=== PATIENT | male | born 1975 | race Caucasian/White ===

== ENCOUNTER 2018-03-20 19:55 | Emergency (ER) | payer OTHER ==
--- NOTE | 2018-03-20 20:24 | ER Document Report ---
ED General - General Chief Complaint: Urinary Problem Stated Complaint: DIFFICULTY URINATING Time Seen by Provider: 03/20/18 20:24 Notes: Patient is a 42-year-old male that presents to the emergency department for chief complaint of urinary retention. Patient states his been having difficulty having urinary stream throughout the entire day today, he is been having small dribbling throughout. He has had this in the past, more remotely 20 years ago, he had to have a TURP procedure, because he had urinary retention after an injury. He states about a week and a half ago, he was having similar symptoms and was started on antibiotic and it seemed to help, but then his symptoms returned today so this brought him to the emergency department. He describes the pain is having is a pressure in the suprapubic region, describes as a constant dull ache, as a 4 out of 10 at this time, with sensation to urinate. He has had burning in the urination as well. He did start taking Azo today, which has changed the urine color to orange. Past Medical History: Denies other chronic medical conditions Past Surgical History: TURP procedure Social History: Denies tobacco, alcohol or drug use. Family History: Reviewed and noncontributory for presenting illness Allergies: Reviewed, see documented allergy list. REVIEW OF SYSTEMS: Unless otherwise stated in this report the patient's positive and negative responses for review of systems for constitutional, eyes, ENT, cardiovascular, respiratory, gastrointestinal, neurological, genitourinary, musculoskeletal, and integumentary systems and related systems to the presenting problem are either as stated in the HPI or were not pertinent or were negative for the symptoms and/or complaints related to the presenting medical problem. PHYSICAL EXAMINATION: Vital signs reviewed, nursing noted reviewed. GENERAL: Well-appearing, well-nourished and appears uncomfortable HEAD: Atraumatic, normocephalic. EYES: Eyes appear normal, extraocular movements intact, sclera anicteric, conjunctiva are normal. ENT: nares patent, oropharynx clear without exudates. Moist mucous membranes. NECK: Normal range of motion, supple without lymphadenopathy LUNGS: Breath sounds clear to auscultation bilaterally and equal. No wheezes rales or rhonchi. HEART: Regular rate and rhythm without murmurs ABDOMEN: Soft, suprapubic tenderness to palpation, normoactive bowel sounds. No rebound, guarding, or rigidity. No masses appreciated. EXTREMITIES: Nontender, good range of motion, no pitting or edema. NEUROLOGICAL: No focal neurological deficits. Moves all extremities spontaneously Motor and sensory grossly intact on exam. PSYCH: Normal mood, normal affect. SKIN: Warm, Dry, normal turgor, no rashes or lesions noted on exposed skin TRAVEL OUTSIDE OF THE [place] IN LAST 30 DAYS: No - Related Data Allergies/Adverse Reactions: pseudoephedrine HCl [From Sudafed] Allergy (Verified 03/20/18 19:59) Past Medical History - Social History Smoking Status: Never Smoker Family History: Reviewed & Not Pertinent Course - Re-evaluation Re-evalutation: Patient seen and examined vital signs reviewed. Was planning on placing a urinary catheter, due to the patient's urinary retention, however the patient urinated spontaneously, and felt much better, I then measured the patient's bladder volume with ultrasound which was approximately 200 mL's. UA was ordered, as well as culture however the patient did not provide a urinary sample when he did urinate, we will observe him, and attempt to get urinary sample, if the patient is feeling okay, and is able to urinate again, will avoid Saavedra catheterization and have him follow-up with urology. Results were reviewed when available and demonstrated urinalysis consistent with urinary tract infection, however given this patient urinary retention, and no blood noted, this may be prostatitis, therefore we will treat him as such. The patient was re-evaluated and was able to urinate and additional time in the emergency department, will avoid Saavedra catheter placement at this time and have him follow-up with urology Evaluation was most consistent with prostatitis, will be given a prescription for ciprofloxacin for 2 weeks. Results were discussed with the patient at this point, after careful consideration I feel that that patient can be discharged from the emergency department, the patient was educated treatments and reasons to return to the emergency department based on their presumed diagnosis as noted above, they were advised to followup with a primary care physician in 2-3 days. Patient was agreeable to plan of care. *Note is created using voice recognition software and may contain spelling, syntax or grammatical errors. Laboratory 03/20/18 21:20 Urine Color MADAN Urine Appearance SLIGHTLY-CLOUDY Urine pH 6.0 Ur Specific [place] 1.010 Urine Protein NEGATIVE Urine Glucose (UA) NEGATIVE Urine Ketones NEGATIVE Urine Blood NEGATIVE Urine Nitrite POSITIVE H Urine Bilirubin NEGATIVE Urine Urobilinogen 4.0 H Ur Leukocyte Esterase MODERATE H Urine WBC (Auto) >182 Urine RBC (Auto) 3 Urine Bacteria (Auto) 3+ Squamous Epi Cells Auto 1 Urine Mucus (Auto) RARE Urine Ascorbic Acid NEGATIVE - Laboratory Laboratory results interpreted by me: 03/20/18 21:20 Urine Nitrite POSITIVE H Urine Urobilinogen 4.0 H Ur Leukocyte Esterase MODERATE H Discharge - Discharge Clinical Impression: Urinary retention Prostatitis Qualifiers: Prostatitis type: unspecified Qualified Code(s): N41.9 - Inflammatory disease of prostate, unspecified Condition: Stable Disposition: HOME, SELF-CARE Instructions: Ciprofloxacin ([facility]), Prostatitis ([facility]) Prescriptions: Ciprofloxacin HCl [Cipro 500 mg Tablet] 500 mg PO BID #28 tablet Referrals: ROBERTO CUEVAS DO [NO LOCAL MD] - Follow up as needed MANUEL KENDALL MD [NO LOCAL MD] - Follow up in 3-5 days (urology) CLARK MÉNDEZ MD [NO LOCAL MD] - Follow up in 3-5 days (urology )
[2018-03-20 22:47] LABS: APPEARANCE,URINE SLIGHTLY-CLOUDY; BILIRUBIN,URINE NEGATIVE (NEGATIVE); COLOR,URINE AMBER; GLUCOSE, URINE NEGATIVE (NEGATIVE); KETONES,URINE NEGATIVE (NEGATIVE); LEUKOCYTE ESTERASE,URINE MODERATE (NEGATIVE); NITRITE,URINE POSITIVE (NEGATIVE); PROTEIN,URINE NEGATIVE (NEGATIVE)
[2018-03-20] MEDS ORDERED: CEPHALEXIN 500 MG CAPSULE PO ONE (22:57)
[2018-03-20] MEDS ORDERED: CIPROFLOXACIN HCL 500 MG TABLET PO ONE (23:03)
[2018-03-20 23:31] VITALS: BP 122/68
== END 2018-03-20 23:25 | disposition home or self-care (01) ==
LOC: ER 19:55
DX: N41.9 Inflammatory disease of prostate, unspecified (principal); R39.9 Unspecified symptoms and signs involving the genitourinary system; Z98.890 Other specified postprocedural states; Z88.8 Allergy status to other drugs, medicaments and biological substances
CPT/HCPCS: 81001; 87086; 87088; 87186; 99284; C1758